=== PATIENT | female | born 1985 | race Caucasian/White ===

== ENCOUNTER 2017-06-08 04:08 | Inpatient (IN) | payer BC ==
[~2017-06-08] VITALS: Ht 170.2 cm; Wt 80.8 kg
--- NOTE | ~2017-06-08 | OR ---
PATIENT'S NAME: [facility] AGE: 31 Y [address] ROOM: [place] [address] LOCATION: BS ADMIT DATE: 06/08/2017 OR/Procedure Report DISCHARGE DATE: FAMILY PHYSICIAN: Jackie Reyes MD ATTENDING PHYSICIAN: Shantelle Qureshi SURGEON: Emperatriz Orosco MD ANESTHESIOLOGISTS' ASSISTANT: DATE OF PROCEDURE: 06/08/2017 This is a 31-year-old, 2, para 1-0-0-1 with a due date of 06/14/2017. She presented in labor today. She is at 39 weeks gestation, presented 7 cm dilated upon admission. Group B strep testing was negative and care was uncomplicated. She got a labor epidural. heart tones were reassuring. She had 1 area of deceleration after the epidural from hypotension. She progressed on to 9 cm and I ruptured her membranes and she was found to have clear fluid. She went on to complete. With pushing, she delivered spontaneously over a midline episiotomy. The shoulders and body were easily delivered. Baby boy was placed on maternal abdomen and his cord was doubly clamped and cut. He received scores of 8 and 9, weighed 7 pounds and 6 ounces. A 3-vessel cord was noted. Placenta was delivered spontaneously and intact. Cervix and vagina are intact. Midline episiotomy was repaired in the usual fashion with 2-0 chromic. The patient tolerated the procedure well. EMPERATRIZ OROSCO MD KHP/modl /[id number] d: 06/08/17712 t: 07/04/17 0857, OPERATIVE SUMMARY
[~2017-06-08 04:08] MED LIST: PRENATAL 1+1)(P1 TAB PO; ZANTAC (NON-FO150 MG PO
[2017-06-08 04:46] LABS: BASOPHIL # 0.1 K/uL (0.0-0.2); BASOPHIL % 0.4 %; EOSINOPHIL # 0.1 K/uL (0.0-0.5); EOSINOPHIL % 0.9 %; HEMATOCRIT 36.7 % (33.0-46.0); HEMOGLOBIN 12.8 g/dL (11.0-15.0); IMMATURE GRANULOCYTE # 0.1 K/uL (0.0-0.3); IMMATURE GRANULOCYTE % 0.7 %; LYMPHOCYTE # 2.1 K/uL (0.8-4.0); LYMPHOCYTE % 18.4 %; MCHC 34.9 gm/dL (32.0-36.5); MCV 86.2 fl (83.0-98.0); MONOCYTE # 0.8 K/uL (0.0-1.0); MONOCYTE % 6.8 %; MPV 10.8 fl (9.4-12.4); NEUTROPHIL # (ANC) 8.2 K/uL (1.8-7.8); NEUTROPHIL % 72.8 %; NRBC % 0 /100WBC (0-0.00); PLATELET COUNT 208 K/uL (150-450); RBC 4.26 M/uL (3.50-5.50); RDW-CV 12.6 % (11.9-14.6); WBC 11.3 K/uL (4.0-11.0)
--- NOTE | 2017-06-08 17:14 | NUR ---
Significant Event: Follow up: VSS, uneventful reovery, medicated with motrin @ 1547, voiding well, no clots.
[2017-06-09 04:44] LABS: BASOPHIL # 0.1 K/uL (0.0-0.2); BASOPHIL % 0.4 %; EOSINOPHIL # 0.2 K/uL (0.0-0.5); EOSINOPHIL % 1.7 %; HEMATOCRIT 30.3 % (33.0-46.0); HEMOGLOBIN 10.3 g/dL (11.0-15.0); IMMATURE GRANULOCYTE # 0.1 K/uL (0.0-0.3); IMMATURE GRANULOCYTE % 0.6 %; LYMPHOCYTE # 2.3 K/uL (0.8-4.0); LYMPHOCYTE % 19.5 %; MCH 30.1 pg (27.0-34.0); MCV 88.6 fl (83.0-98.0); MONOCYTE # 0.8 K/uL (0.0-1.0); MONOCYTE % 6.3 %; MPV 10.6 fl (9.4-12.4); NEUTROPHIL # (ANC) 8.6 K/uL (1.8-7.8); NEUTROPHIL % 71.5 %; NRBC % 0 /100WBC (0-0.00); PLATELET COUNT 171 K/uL (150-450); RBC 3.42 M/uL (3.50-5.50); RDW-CV 12.9 % (11.9-14.6)
--- NOTE | 2017-06-09 04:44 | NUR ---
Last VS: T:98.3 P:80 R: 16 BP: 98/62 Pain ratin Last pain med: motrin Medicated at: 2345 Effective:yes Breasts: soft Nipples: tender Fundus: firm,midline ,1 below Lochia: sm,rubra Epis/Perineum: approx, , Voiding well: yes Significant event: PT RESTED SOME THRU THE NIGHT. ALREADY KNOWLEDGEABLE ABOUT BABY CARES. BREASTFEEDS WELL. HAS NIPPLE OINTMENT, SOOTHIES AND LANOLIN AT BEDSIDE. TOOK JACUZZI BATH LAST NIGHT. STATES SHE IS A LITTLE MORE SORE THIS AM.
--- NOTE | 2017-06-09 16:10 | NUR ---
Significant Event: Follow up: VSS, Hbg 10.3, from 12.8, Sl dc'd. Medicated with Motrin @ 0835, with relief. Plan home tomorrow.
--- NOTE | 2017-06-10 05:46 | NUR ---
Significant Event: VSS. motrin given at 0200. independent with cares. home today Follow up:
[2017-06-10] MEDS ORDERED: MOTRIN800 MG PO (09:37)
[2017-06-10] MEDS ORDERED: PERCOCET 5-3251 EACH PO (09:38)
== END 2017-06-10 11:53 | disposition disaster alternative care site (69) | DRG 775 ==
LOC: GOBS 04:08 → GOBM 04:08 → GNUR 04:26 → GOBS 04:26 → GOBM 04:26 → GOBS 06-10 11:53
PROVIDERS: Obstetrics & Gynecology; ADMIT Obstetrics & Gynecology
PROC: 10E0XZZ Delivery of Products of Conception, External Approach (ICD-10-PCS; principal; 2017-06-08)
PROC: 0W8NXZZ Division of Female Perineum, External Approach (ICD-10-PCS; principal; 2017-06-08)
PROC: 10907ZC Drainage of Amniotic Fluid, Therapeutic from Products of Conception, Via Natural or Artificial Opening (ICD-10-PCS; principal; 2017-06-08)
DX: O75.89 Other specified complications of labor and delivery (principal); I95.9 Hypotension, unspecified; O76 Abnormality in fetal heart rate and rhythm complicating labor and delivery; Z3A.39 39 weeks gestation of pregnancy; Z37.0 Single live birth
CPT/HCPCS: J2001; J2590; J3010; J7120